=== PATIENT | female | born 1990 | race American Indian/Alaskan Native ===

== ENCOUNTER 2022-04-21 00:43 | Emergency (ER) | payer SELFPAY ==
[2022-04-21 01:22] VITALS: BP 140/90
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
[2022-04-21] MEDS ORDERED: BUDESONIDE 0.5 MG/2 ML NEBU IH ONE (20:06)
== END 2022-04-21 02:30 ==
LOC: ED 00:43
DX: T14.8XXA Other injury of unspecified body region, initial encounter (principal); V89.2XXA Person injured in unspecified motor-vehicle accident, traffic, initial encounter; Y93.89 Activity, other specified; Y92.89 Other specified places as the place of occurrence of the external cause; Y99.8 Other external cause status
CPT/HCPCS: 99282